=== PATIENT | female | born 1945 | race Caucasian/White ===

== ENCOUNTER → 2017-06-15 | Outpatient (CLI) | payer MEDICARE ==
[2016-08-21 11:52] VITALS: BP 200/92
[2017-06-15 11:08] LABS: eGFR (African) > 60; eGFR (Non-African) > 60
--- NOTE | 2017-06-15 13:22 | Diagnostic Imaging Report ---
JAKE LICEA [facility] [address] [facility] [address], [place]. [address] Report Submission Date: Jun 15, 2017 11:17:20 AM CDT Patient Study Name: TARI BECERRA Date: Jun 15, 2017 10:39:15 AM CDT Modality Type: CR Gender: F Description: CHEST : 47 Institution: [facility] Physician: JAKE LICEA Examination: PA and lateral chest. History: Evaluate lung rodriguez. Comparison exam: None available for direct review Findings: PA lateral chest demonstrates a prominent cardiac silhouette. Vascular calcifications involving the aortic arch. Diffuse hazy interstitial prominence. Fullness involving the right hilum. No blunting of the costophrenic margins. Osseous structures are appropriate for age. Impression: Diffuse bilateral parenchymal hazy infiltrates. More focal consolidation right hilum. No effusion. Electronically signed on Jun 15, 2017 11:17:20 AM CDT by: Lamont JOHNSON
== END ==
LOC: LAB 10:27
PROVIDERS: ATTEND Family Medicine
DX: J45.909 Unspecified asthma, uncomplicated (principal); R09.02 Hypoxemia
CPT/HCPCS: 36415; 71020; 80053

== ENCOUNTER 2017-09-26 14:09 | Outpatient (CLI) | payer MEDICARE ==
[2016-08-21 11:52] VITALS: BP 200/92
--- NOTE | 2017-09-26 14:39 | Diagnostic Imaging Report ---
HEIKE RENE [facility] [address] [facility] [address] [place] [address]. [id number] Report Submission Date: Sep 26, 2017 2:34:31 PM PR SPECIALIST Patient Study Name: TARI BECERRA Date: Sep 26, 2017 2:15:50 PM PR SPECIALIST Modality Type: CT\SR Gender: F Description: CT BRAIN W/O CONTRAST : 47 Institution: [facility] Physician: HEIKE RENE Examination: CT head without contrast History: Dizziness Comparison exam: None available Technique: Noncontrast head CT protocol. Findings: Ventricles and sulci are consistent for patient age. Cerebrocerebellar parenchyma demonstrates periventricular low attenuation consistent with small vessel disease. No evidence for parenchymal hemorrhage. No evidence for mass or mass effect. No midline shift. No extra axial fluid collections. Partial visualization of the paranasal sinuses, mastoid air cells, orbits, skull and scalp without gross irregularity. Streak artifact from dental hardware. Impression: Age related changes. No acute parenchymal process. No hemorrhage. Electronically signed on Sep 26, 2017 2:34:31 PM PR SPECIALIST by: Lamont JOHNSON
== END 2017-09-26 14:10 ==
LOC: RAD 14:09
PROVIDERS: ATTEND Family Medicine
DX: H91.90 Unspecified hearing loss, unspecified ear (principal)
CPT/HCPCS: 70450

== ENCOUNTER 2017-10-03 11:16 | Outpatient (CLI) | payer MEDICARE ==
[2016-08-21 11:52] VITALS: BP 200/92
--- NOTE | 2017-10-05 12:23 | OP Clinic Progress Note ---
REASON FOR VISIT: This pleasant 71-year-old lady is seen by herself in the clinic. She notes that exactly 1 month ago, on September 02, she woke up with bilateral sudden hearing loss. It felt like it was much more profound in the left ear. Progressively, the hearing in the right ear has gotten better, although it seems to wax and wane to some degree. She also noted marked imbalance. She also had some positional vertigo turning over in bed but that has changed significantly. Although the hearing loss has remained persistent and profound in the left ear, the balance issues have ameliorated only slightly. She does have a tendency to be significantly imbalanced and she does a lot of "furniture walking" or "wall walking." She tends to wobble and feel weaker more toward the right side. This should be noted as in contrast to the clinical sensorineural hearing loss that she has that would seem to be on the left side. Although there is a small amount of nonobstructive cerumen in both ear canals, the portion of the eardrums that I see do not have fluid in them. The tuning fork test would suggest a left-sided sensorineural hearing loss with a Gann referring to the right ear. When I do the Rinne test on the mastoid, the bone conducts and refers to the right ear in addition. The air conduction is greater than bone conduction on the right Rinne. There is no nystagmus. On observing the patient at the time of the clinic visit walking, she uses her right upper extremity to balance herself for the wall. Patient is a non-insulin dependent diabetic. She knows how to take her blood sugars but does not do that very frequently. She takes some oral hypoglycemics. I went over using diagrams and models. This clinically appears to be a sudden sensorineural hearing loss of the left side. She had a CT of the head without contrast. This is a normal exam. PLAN: I recommended taking steroids and she understands there is some risk with this. She has agreed that she will take some risk associated with her diabetes taking the steroids. She has also agreed to take her blood sugars at home 6 times a day at least here at the onset to be careful and watch herself. She knows not to allow the sugars to go too high. I started with 70 mg of prednisone a day tapering down 10 mg a day over a week. She has agreed to get her hearing checked in about 6 days. Also, get an MRI in the interim and arrangements will be made in that regard. cc: Dr. Curt JOHNSON
== END 2017-10-03 11:17 ==
LOC: ENT 11:16
PROVIDERS: ATTEND Otolaryngology
DX: H90.5 Unspecified sensorineural hearing loss (principal)
CPT/HCPCS: G0463

== ENCOUNTER 2018-02-23 13:44 | Emergency (ER) | payer MEDICARE ==
--- NOTE | 2018-02-23 14:54 | ED Physician Documentation ---
General Adult - HISTORIAN Historian: patient - HPI Stated Complaint: bloody stools Chief Complaint: General Adult Onset: days ago (1) Timing: still present Further Comments: yes (Pt is a 72 yo female who has had blood in her bowel movements since yesterday. Pt has had no abd pain, no rectal pain, no lightheadedness, no other sx except the finding of bloody stool. Pt has no family hx of GI dz. Pt takes Diclofenac 75 mg po bid, possibly for arthritis ( pt is not sure what it's for). Blood in BM is red, with some dark stool (but not black). Pt notes change in bowel habits in the past 6 months. Pt used to have 2 bm's/day and now has 3 bm's/day.) - ROS CONST: no problems EYES/ENT: none CVS/RESP: none GI/: other (blood in BM) MS/SKIN/LYMPH: none - PAST HX Past History: other (DM, COPD, B-12 def, HLD, HTN, GERD) Allergies/Adverse Reactions: Allergies Allergy/AdvReac Type Severity Reaction Status Date / Time No Known Allergies Allergy Verified 02/23/18 14:04 Home Medications: Ambulatory Orders Medication Instructions Recorded Mecobalamin [B-12] 1 tab PO DAILY 03/11/15 - SOCIAL HX Smoking History: cigarettes - FAMILY HX Family History: No - VITAL SIGNS Vital Signs: Vital Signs Temp Pulse Resp BP Pulse Ox 98.5 F 84 22 148/61 87 L 02/23/18 14:05 02/23/18 14:05 02/23/18 14:05 02/23/18 14:05 02/23/18 14:05 - REVIEWED ASSESSMENTS Nursing Assessment Reviewed: Yes Vitals Reviewed: Yes Progress - Progress Progress: Colonoscopy on Sunday02/25/18 at 11:30 am. (Dr. King). Follow instructions provided with bowel prep prescription. Return to ER if you have increased bleeding or any concerns. (Pt declined offer to try to arrange for colonoscopy in [place] today.) ED Results Lab/Radiology - Orders Orders: ED Orders Category Date Time Status CBC/PLATELET/DIFF Routine Lab 02/23/18 Received CMP Routine Lab 02/23/18 Received PT-INR Routine Lab 02/23/18 Received PTT Routine Lab 02/23/18 Received General Adult Physical Exam - PHYSICAL EXAM GENERAL APPEARANCE: no distress EENT: pharynx normal NECK: normal inspection, supple RESPIRATORY: no resp distress, chest non-tender, breath sounds normal CVS: reg rate & rhythm, heart sounds normal ABDOMEN: soft, no organomegaly, normal bowel sounds RECTAL: normal rectal tone, heme positive stool (ck blood) BACK: normal inspection, no CVA tenderness SKIN: warm/dry, normal color EXTREMITIES: non-tender, normal range of motion, no evidence of injury NEURO: oriented X3, motor nml, sensation nml Discharge Clincal Impression: Rectal bleeding Referrals: Curt Vidal MD [Primary Care Provider] - Condition: Stable Disposition: 01 HOME, SELF-CARE Decision to Admit: NO Decision Time: 15:54
[2018-02-23 14:55] LABS: BASOPHILS % 0.7 (0.0-1.5); EOSINOPHILS % 2.2 % (0.0-6.8); MEAN CORPUSCULAR HEMOGLOBIN 27.1 pg (28.0-34.0); MEAN CORPUSCULAR VOLUME 88.9 fl (80.0-100.0); MONOCYTES % 4.4 % (0.0-11.0); NEUTROPHILS # 7.8 # k/uL (1.4-7.7)
[2018-02-23 14:58] LABS: eGFR (African) > 60; eGFR (Non-African) > 60
[2018-02-23 15:58] VITALS: BP 137/67
== END 2018-02-23 15:54 | disposition home or self-care (01) ==
LOC: ED 13:44
DX: K62.5 Hemorrhage of anus and rectum (principal)
CPT/HCPCS: 80053; 85025; 85610; 85730; 99283

== ENCOUNTER 2018-02-25 10:48 | Day surgery (SDC) | payer MEDICARE ==
[2018-02-25] MEDS ORDERED: PROPOFOL 200 MG/20 ML VIAL IV ONE (10:49)
[2018-02-25] MEDS ORDERED: LACTATED RINGERS 1,000 ML IV.SOLN IV ONE (10:49)
[2018-02-25] MEDS ORDERED: SALINE FLUSH 10 ML DISP.SYRIN IVF ONE (10:49)
--- NOTE | 2018-02-28 12:10 | GI Report ---
BOILERMAKER MECHANIC: Chuckie King MD PROCEDURE MEDICATION: Propofol as per anesthesia. INDICATIONS: This 72-year-old woman was in the emergency room on February 23 with several days of blood with her stool and change in bowel habits. She has never had a colonoscopy. She has a lot of health issues. She has end-stage lung disease , COPD, and is already on oxygen at night time and still smokes a pack of cigarettes a day. She also is hyperlipidemic. She has metabolic syndrome. She is a diabetic. She is hypertensive with central obesity. She is 5 feet and weighs 89 kilograms and most of that is centrally. She said the bleeding then stopped and then with the prep, she had a little bleeding again. She is referred for a colonoscopy. Her oxygen saturation at rest was only 82% and that was before oxygen, so we discussed with her that she is really a high risk patient and that we would only be able to give her a light amount of sedation because of the severity of her lung disease and we could possibly get a diagnosis, possibly not. She is willing to try that because her lung disease is so severe. She is agreeable to that approach with light sedation. PROCEDURE PERFORMED: Incomplete colonoscopy. PROCEDURE: An Olympus video colonoscope was advanced to the rectum. In the sigmoid, she has severe diverticular disease. We got as far as about 45 to 50 cm and there was a lot of edema in the wall. I did not see specific pus. There was a little bit of a superficial ulceration, but with her lung disease so severe, we did not want to press and run the risk of a perforation, so we stopped at that point. FINDINGS: 1. Diverticular disease of the colon. 2. Diverticulitis. RECOMMENDATIONS: 1. We will treat her diverticulitis with Flagyl and Cipro if she is not allergic to it. 2. She needs to be on Benefiber, Metamucil, or Citrucel daily. 3. I encouraged her to get herself off of tobacco. 4. If things improve or resolve, then we might be able to attempt in a few months, once the diverticulitis has resolved, and hopefully, she will be able to get herself off tobacco, possibly later this year or in the fall, re-looking or trying to look at her whole colon when the inflammation is gone to make sure we are not missing some lesion above the severe diverticular disease. 5. A CAT scan of the abdomen and pelvis would be, if not done in the ER, another possible way to evaluate her colon. cc: Dr. Curt JOHNSON
== END 2018-02-25 10:50 ==
LOC: OPSURG 10:48
PROVIDERS: ATTEND Internal Medicine Gastroenterology
DX: K92.1 Melena (principal); K57.31 Diverticulosis of large intestine without perforation or abscess with bleeding; K57.21 Diverticulitis of large intestine with perforation and abscess with bleeding; J98.4 Other disorders of lung; J44.9 Chronic obstructive pulmonary disease, unspecified; F17.219 Nicotine dependence, cigarettes, with unspecified nicotine-induced disorders; Z99.81 Dependence on supplemental oxygen; E78.5 Hyperlipidemia, unspecified; E11.9 Type 2 diabetes mellitus without complications; E88.81 Metabolic syndrome and other insulin resistance; I10 Essential (primary) hypertension; E66.9 Obesity, unspecified; Z68.38 Body mass index [BMI] 38.0-38.9, adult
CPT/HCPCS: J2704; J7120; 45330; S1016

== ENCOUNTER 2018-06-04 08:53 | Outpatient (CLI) | payer MEDICARE ==
--- NOTE | 2018-06-04 17:58 | Diagnostic Imaging Report ---
HEIKE RENE [facility] [address] [facility].[address] [address] Report Submission Date: Jun 04, 2018 1:48:24 PM CDT Patient Study Name: TARI BECERRA Date: Jun 04, 2018 9:15:19 AM CDT Modality Type: US Gender: F Description: US CAROTID : 47 Institution: [facility] Physician: HEIKE RENE Examination: Carotid artery ultrasound History: Bruit heard hearing loss Comparison exams: None available Findings: Right carotid: Common carotid artery peak systolic velocity 73.3 cm/s; end diastolic velocity 13.9 cm/s. Internal carotid artery peak systolic velocity 145.9 cm/s; end diastolic velocity 38.2 cm/s. External carotid artery velocity to 67.4 cm/s. Vertebral artery velocity 24.2 cm/s Vertebral flow antegrade. Normal waveforms. Scattered plaquing. Left carotid: Common carotid artery peak systolic velocity 84.6 cm/s; end diastolic velocity 30.3 cm/s. Internal carotid artery peak systolic velocity 69.7 cm/s; end diastolic velocity 18.2 cm/s. External carotid artery velocity to 109.9 cm/s. Vertebral artery velocity 49.0 cm/s Vertebral flow antegrade. Normal waveforms. Scattered plaquing. Right ICA/CCA Ratio: 2.0; Left ICA/CCA Ratio 0.82 Impression: Elevated right carotid ratio suggesting severe stenosis (60-79%) Left carotids ratios not elevated. No restriction to hemodynamic flow. Consider obtaining MRA carotid arteries to better evaluate. Electronically signed on Jun 04, 2018 1:48:24 PM CDT by: Lamont JOHNSON
== END 2018-06-04 08:54 ==
LOC: RAD 08:53
PROVIDERS: ATTEND Family Medicine
DX: G45.9 Transient cerebral ischemic attack, unspecified (principal)
CPT/HCPCS: 93880

== ENCOUNTER 2018-09-29 16:16 | Emergency (ER) | payer MEDICARE ==
--- NOTE | 2018-09-29 21:39 | Diagnostic Imaging Report ---
MACKENZIE PRESLEY [facility] [address] [facility] [address] [place] [address]. [address] Report Submission Date: Sep 29, 2018 7:57:26 PM SOFT SUGAR CUTTER Patient Study Name: TARI BECERRA Date: Sep 29, 2018 7:05:24 PM SOFT SUGAR CUTTER Modality Type: CT\SR Gender: F Description: CT ABDOMEN/PELVIS W/ C : 47 Institution: [facility] Physician: MACKENZIE PRESLEY CT of the abdomen and pelvis with contrast Clinical history: Diffuse abdominal pain. Anorexia for 5 days. Weakness. Contrast administered: 95 mL of Omnipaque. Technique: CT of the abdomen and pelvis performed with intravenous infusion of contrast. Sagittal and coronal reconstructions were performed by the technologist. Findings: Visualized lung bases are clear. The liver and spleen demonstrate normal attenuation without focal defect. Small calcified gallstone is present in the gallbladder. There is no pancreatic abnormality. There is a left adrenal nodule measuring 1.5 cm in size. This is likely benign in the absence known underlying malignancy. Comparison with prior studies or follow-up CT scan in 1 year could be performed for confirmation. The kidneys demonstrate symmetric enhancement. There is no retroperitoneal mass or significant adenopathy. Vascular calcification is present in the abdominal aorta without evidence of aneurysm. There is no retroperitoneal mass or significant adenopathy. Bladder is unremarkable. There is sigmoid colonic wall thickening and edema with a giant diverticulum adjacent to the sigmoid and posterior to the uterus. This demonstrates an air-fluid level and small internal calcification. There is additional small fluid collection adjacent to the colon consistent with diverticular abscess. This fluid collection measures 2.7 by 1.8 by 2.9 cm in size. Gas and stool are present throughout the more proximal colon. The appendix is visualized and is within normal limits. Diffuse spondylitic changes are present throughout the thoracolumbar vertebrae Impression: 1. Giant diverticulum arising from the sigmoid colon with inflammatory changes in the sigmoid colon consistent with colitis or diverticulitis. 2. Diverticular abscess arising from the sigmoid colon. 3. Thoracolumbar spondylosis. 4. Negative appendix. Electronically signed on Sep 29, 2018 7:57:26 PM SOFT SUGAR CUTTER by: Nabeel JOHNSON
[2018-09-30 08:04] LABS: eGFR (Non-African) > 60
[2018-09-30 08:05] LABS: MEAN CORPUSCULAR HEMOGLOBIN 26.5 pg (28.0-34.0)
[2018-09-30 08:06] LABS: BASOPHILS % 0.7 (0.0-1.5); EOSINOPHILS % 1.6 % (0.0-6.8); MONOCYTES % 11.4 % (0.0-11.0); NEUTROPHILS # 10.2 # k/uL (1.4-7.7)
[2018-10-01 07:19] LABS: APPEARANCE,URINE CLEAR (CLEAR); COLOR,URINE YELLOW (YELLOW); OCCULT BLOOD,URINE NEGATIVE (NEGATIVE)
== END 2018-09-29 20:45 | disposition home or self-care (01) ==
LOC: ED 16:16
DX: K57.20 Diverticulitis of large intestine with perforation and abscess without bleeding (principal)
CPT/HCPCS: 36415; 74177; 80053; 81002; 85025; 99283; 99284; J7030; Q9967; S1016

== ENCOUNTER 2018-10-07 13:40 | Emergency (ER) | payer MEDICARE ==
[2018-10-07] MEDS ORDERED: 0.9 % SODIUM CHLORIDE 1,000 ML IV ONE (13:58)
[2018-10-07 14:23] LABS: MEAN CORPUSCULAR HEMOGLOBIN 27.2 pg (28.0-34.0)
[2018-10-07 14:30] LABS: BASOPHILS % 1 % (0-2); EOSINOPHILS % 0 % (0-7); MONOCYTES % 3 % (0-11); SEGMENTED NEUTROPHILS % 76 % (39-79); TOXIC GRANULATION PRESENT; TOXIC VACUOLATION PRESENT
[2018-10-07 14:31] LABS: ANISOCYTOSIS 1+ (NEGATIVE); TEAR DROP CELLS 1+ (NEGATIVE); eGFR (Non-African) > 60
--- NOTE | 2018-10-07 14:37 | ED Physician Documentation ---
Abdominal Pain - HISTORIAN Historian: patient, other (Dr Vázquez) - HPI Stated Complaint: Abd pain, blood in stool Chief Complaint: General Adult Onset: days ago Timing: worse Context: denies: out of country travel, bad food, recent trauma Severity: severe Quality: pain Associated Symptoms: fever, chills, bloody stools, grossly bloody stools Exacerbated by: nothing Relieved by: nothing Further Comments: yes (72 year old female patient sent over from [facility] with worsening abdominal pain and bloody stools. Patient was seen in the ER on 09/29/2017 - discharged home with cipro and flagyl. She presented to her PCP with increased abdominal pain and bloody stools. Old records reviewed) - ROS CONST: recent illness GI/: bloody urine CVS/RESP: none EYES/ENT: none MS/SKIN/LYMPH: none NEURO/PSYCH: none - SOCIAL HX Smoking History: non-smoker - FAMILY HX Family History: denies: none - PAST HX Past History: diverticulitis Other History: diabetes Type 2, hyperlipidemia, hypertension, other (depression) Home Medications: Ambulatory Orders Medication Instructions Recorded Mecobalamin [B-12] 1 tab PO DAILY 03/11/15 Allergies/Adverse Reactions: Allergies Allergy/AdvReac Type Severity Reaction Status Date / Time tolterodine tartrate Allergy Intermediate Generalized Verified 10/07/18 14:09 Swelling metformin HCl Allergy Unknown Verified 10/07/18 14:09 - VITAL SIGNS Vital Signs: Vital Signs Temp Pulse Resp BP Pulse Ox 100.0 F H 104 H 28 H 143/59 83 L 10/07/18 13:41 10/07/18 13:41 10/07/18 13:41 10/07/18 13:41 10/07/18 13:41 - REVIEWED ASSESSMENTS Nursing Assessment Reviewed: Yes Vitals Reviewed: Yes Progress - Progress Progress: Call from Dr Tinajero - CT results discussed. Reviewed results with patient; explained she needed immediate surgical evaluation. Patient would like to be transferred to [place]. 1610 Call to [place], case discussed with Tariq [address] Ortiz. Medicated for pain with Fentanyl IV. 1625 Family at bedside - updated on CT results and plan of care. ED Results Lab/Radiology - Lab Results Lab Results: Lab Results 10/07/18 10/07/18 10/07/18 16:04 14:04 14:04 WBC 18.60 K/ul H K/ul (4.00-12.00) RBC 4.20 M/ul M/ul (3.90-5.20) Hgb 11.4 g/dL L g/dL (12.0-16.0) Hct 34.7 % % (34.5-46.5) MCV 83.0 fl fl (80.0-100.0) MCH 27.2 pg L pg (28.0-34.0) MCHC 32.9 g/dL g/dL (30.0-36.0) RDW 14.6 % H % (11.3-14.3) Plt Count 308 K/mm3 K/mm3 (130-400) Seg Neutrophils % 76 % % (39-79) Band Neutrophils % 15 % H % (0-12) Lymphocytes % 2 % L % (16-50) Monocytes % 3 % % (0-11) Eosinophils % 0 % % (0-7) Basophils % 1 % % (0-2) Metamyelocytes % 3 % H % (0-0) Myelocytes % 0 % % (0-0) Reactive Lymphocytes 0 % % (0-5) Toxic Granulation Present Toxic Vacuolation Present Platelet Estimate Plt Morphology Comment Normal (NORMAL) Polychromasia 1+ H (NEGATIVE) Poikilocytosis 3+ H (NEGATIVE) Anisocytosis 1+ H (NEGATIVE) Microcytosis 1+ H (NEGATIVE) Tear Drop Cells 1+ H (NEGATIVE) Acanthocytes (Spur) 1+ H (NEGATIVE) RBC Morph Comment Abnormal H (NORMAL) Sodium 130 mmol/L L mmol/L (136-145) Potassium 3.6 mmol/L mmol/L (3.5-5.1) Chloride 90 mmol/L L mmol/L (98-107) Carbon Dioxide 31 mmol/L H mmol/L (22-30) BUN 17 mg/dL mg/dL (7-17) Creatinine 0.68 mg/dL mg/dL (0.52-1.04) Estimated Creat Clear 127 Est GFR ( Amer) > 60 (60 - ) Est GFR (Non-Af Amer) > 60 (60 - ) Glucose 219 mg/dL H mg/dL (74-106) Lactate 2.1 U/L U/L (0.7-2.1) Calcium 9.6 mg/dL mg/dL (8.4-10.2) Total Bilirubin 0.6 mg/dL mg/dL (0.2-1.3) AST 12 U/L L U/L (15-46) ALT 18 U/L U/L (13-69) Alkaline Phosphatase 88 U/L U/L (38-126) Total Protein 6.2 g/dL L g/dL (6.3-8.2) Albumin 3.3 g/dL L g/dL (3.5-5.0) Urine Color Unk (YELLOW) Urine Appearance Cloudy H (CLEAR) Urine pH 6.0 (5.0 - 8.0) Ur Specific [place] 1.020 (1.010-1.030) Urine Protein 1+ mg/dL H mg/dL (NEGATIVE) Urine Ketones 1+ mg/dL H mg/dL (NEGATIVE) Urine Occult Blood Trace-lysed H (NEGATIVE) Urine Nitrite Positive H (NEGATIVE) Urine Bilirubin 2+ H (NEGATIVE) Urine Urobilinogen 1.0 Eu Eu (0.2-1.0) Ur Leukocyte Esterase Trace H (NEGATIVE) Urine Glucose Negative mg/dL mg/dL (NEGATIVE) - Radiology Radiology Impressions: CT abdomen and pelvis with contrast History: Worsening abdominal pain Technique: Helically acquired images were obtained from the hemidiaphragms to the pelvic floor following IV contrast. Findings: There is free air scattered within the abdomen and pelvis. There is at least 1 tiny gallstone. Otherwise, the gallbladder is unremarkable. The liver, spleen, pancreas, adrenal glands and kidneys are unremarkable. There is a large amount of stool throughout the right colon. The appendix is visualized and is within normal limits. Directly adjacent to a distal descending diverticulum, there is a tract of free air (see image [id number]). Therefore, a perforated diverticulum potentially may be the source of the free air. There are small loculated and somewhat complex fluid collections within the left pelvis (see image 61 of 88) measuring 3.2 x 1.8 cm and image 68 of 88 measuring 3.8 x 2.3 cm. These complex loculated fluid collections have not yet developed into mature abscesses. There is heavy aortoiliac atherosclerosis without aneurysm. Stool is present within the sigmoid colon. No bladder abnormalities are noted. Lung bases are clear. There is vacuum disc phenomenon at L2/3, L3/4 and T10/11. Impression: A moderate amount of free air is scattered throughout the abdomen and pelvis consistent with bowel perforation. The site of perforation probably involves the sigmoid colon where there is a tract of air extending from at least 1 diverticulum. Emergent surgical consultation would be indicated. There is mild hazy induration at the root of the mesentery. There are 2 localized complex fluid collections within the left pelvis as detailed in the body of report concerning for developing but not yet mature abscesses. Increased stool within the right colon. There is some stool through the sigmoid colon. Heavy aortoiliac atherosclerosis. These findings were discussed with Dr. Cocharn on October 07, 2018 at 1555 central standard time. Electronically signed on Oct 07, 2018 4:07:02 PM ELECTRICAL LABORATORY TECHNICIAN by:Morenita Tinajero - Orders Orders: ED Orders Category Date Time Status Place IV Lock 1T Care 10/07/18 13:[address] ABD & PELVIS W/ CON Stat Exams 10/07/18 Completed BLOOD CULTURE Stat Lab 10/07/18 14:47 Received CBC/PLATELET/DIFF Stat Lab 10/07/18 14:04 Completed CMP Stat Lab 10/07/18 14:04 Completed LACTATE Stat Lab 10/07/18 14:04 Completed RBC/PLATELET MORPHOLOGY Stat Lab 10/07/18 14:04 Completed UA MACRO DIP ONLY Stat Lab 10/07/18 16:04 Received URINE CULTURE Stat Lab 10/07/18 16:04 Received 0.9 % Sodium Chloride [Normal Saline] 1,000 ml Med 10/07/18 13:58 Discontinued IV NOW LACTATED RINGERS @ 1,000 MLS/HR(1,000ml)(BOLUS) Med 10/07/18 16:18 Ordered Lactated Ringers [Ringers, Lactated] 1,000 ml IV Q1H Lactated Ringers [Ringers, Lactated] 1,000 ml Med 10/07/18 16:18 Discontinued IV .STK-MED Piperacillin Sodium/Tazobactam [Zosyn] 3.375 gm Med 10/07/18 14:38 Discontinued 0.9 % Sodium Chloride [Sodium Chloride] 100 ml IV NOW fentaNYL CITRATE/PF Med 10/07/18 16:18 Once 50 mcg IVP NOW ONE Abdominal Pain Physical Exam - Physical Exam General Appearance: moderate distress EENT: eye inspection normal, ENT inspection normal, pharynx normal, no signs of dehydration, SERAFIN, no nystagmus, TM's nml RESPIRATORY: chest non-tender, breath sounds normal, other (RA Sat 83% on a rrival) CVS: heart sounds normal, equal pulses, no murmur, no gallop, PMI nml, no JVD, no friction rub, tachycardia ABDOMEN: soft, no organomegaly, no abdominal bruit, tenderness (epigastric, LUQ and LLQ), decreased BS, other (distended; tender to mild palpation) SKIN: warm/dry, pallor EXTREMITIES: non-tender, normal range of motion, no evidence of injury, no edema, J, 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
[2018-10-07] MEDS ORDERED: PIPERACILLIN SODIUM/TAZOBACTAM 3.375 GM in 0.9 % SODIUM CHLORIDE(MINIBAG+ 100 ML IV ONE (14:38)
--- NOTE | 2018-10-07 16:09 | Diagnostic Imaging Report ---
ORLANOD HILLS (BACK TENDER PULP DRIER) - ER [facility] [place] [facility] [address] [facility] [address] [place], [place]. [address] Report Submission Date: Oct 07, 2018 4:07:02 PM NURSING CARE PARTNER Patient Study Name: TARI BECERRA Date: Oct 07, 2018 2:54:07 PM NURSING CARE PARTNER Modality Type: CT Gender: F Description: CT ABD PELVIS W/ CON : 47 Institution: [facility] Physician: ORLANDO HILLS (BACK TENDER PULP DRIER) - ER CT abdomen and pelvis with contrast History: Worsening abdominal pain Technique: Helically acquired images were obtained from the hemidiaphragms to the pelvic floor following IV contrast. Findings: There is free air scattered within the abdomen and pelvis. There is at least 1 tiny gallstone. Otherwise, the gallbladder is unremarkable. The liver, spleen, pancreas, adrenal glands and kidneys are unremarkable. There is a large amount of stool throughout the right colon. The appendix is visualized and is within normal limits. Directly adjacent to a distal descending diverticulum, there is a tract of free air (see image [id number]). Therefore, a perforated diverticulum potentially may be the source of the free air. There are small loculated and somewhat complex fluid collections within the left pelvis (see image 61 of 88) measuring 3.2 x 1.8 cm and image 68 of 88 measuring 3.8 x 2.3 cm. These complex loculated fluid collections have not yet developed into mature abscesses. There is heavy aortoiliac atherosclerosis without aneurysm. Stool is present within the sigmoid colon. No bladder abnormalities are noted. Lung bases are clear. There is vacuum disc phenomenon at L2/3, L3/4 and T10/11. Impression: A moderate amount of free air is scattered throughout the abdomen and pelvis consistent with bowel perforation. The site of perforation probably involves the sigmoid colon where there is a tract of air extending from at least 1 diverticulum. Emergent surgical consultation would be indicated. There is mild hazy induration at the root of the mesentery. There are 2 localized complex fluid collections within the left pelvis as detailed in the body of report concerning for developing but not yet mature abscesses. Increased stool within the right colon. There is some stool through the sigmoid colon. Heavy aortoiliac atherosclerosis. These findings were discussed with Dr. Hills on October 07, 2018 at 1555 central standard time. Electronically signed on Oct 07, 2018 4:07:02 PM NURSING CARE PARTNER by: Morenita JOHNSON
[2018-10-07 16:17] LABS: APPEARANCE,URINE CLOUDY (CLEAR)
[2018-10-07 16:18] LABS: OCCULT BLOOD,URINE TRACE-LYSED (NEGATIVE)
[2018-10-07] MEDS ORDERED: fentaNYL CITRATE/PF 100 MCG/2 ML INJ. IVP ONE ×2 (16:18→16:34)
[2018-10-07] MEDS ORDERED: LACTATED RINGERS 1,000 ML IV ONE ×2 (16:18)
[2018-10-07 16:38] VITALS: BP 121/48
== END 2018-10-07 16:26 | disposition short-term general hospital (02) ==
LOC: ED 13:40
DX: K63.1 Perforation of intestine (nontraumatic) (principal); K66.8 Other specified disorders of peritoneum; R18.8 Other ascites
CPT/HCPCS: 36415; 74177; 80053; 81002; 83605; 85025; 87040; 87086; 96365; 96375; 99285; J2543; J3010; J7030; J7120; Q9967; S1016

== ENCOUNTER 2018-10-22 14:06 | Inpatient (IN) | payer MEDICARE ==
[2018-10-22 14:33] VITALS: BMI 38.5
[2018-10-22] MEDS ORDERED: IPRATROPIUM/ALBUTEROL SULFATE 3 ML AMPUL.NEB NEB PRN (14:41)
--- NOTE | 2018-10-22 15:30 | History and Physical Report ---
History of Present Illnes - History of Present Illness Reason for Visit: Perforated sigmoid diverticulum History of Present Illness: This is a 72 year old female well known to myself who was admitted to [facility] (after initially presenting to [facility]) where CT showed her to have a perforated sigmoid diverticulum. She was transferred to [place], and on the evening of admission, she had a exploratory laparotomy with sigmoid colectomy with end descending colostomy and drainage of intrabdominal abcesses. A Justin pouch was developed at the time of surgery with plans for reanastamosis in 4-6 weeks. She initially went home, however she remained very weak, and was eating very little. She had some bouts of hypoglycemia, and her amaryl and Actos were held due to this. Due to her continued weakness, she and her decided that she would benefit from a skilled stay at [facility] and she is admitted for PT/OT with plans to return home after discharge. - Past Medical History Cardiac: HTN, Hyperlipidemia Pulmonary: Asthma, COPD Gastrointestinal: Peptic ulcer disease Psych: Depression Renal/: Other (kidney stones) Endocrine: Diabetes, obesity - Past Surgical History Past Surgical History: Tubal Ligation, Other (Sigmoid colectomy/Justin pouch formation October 07, 2018) - Past Social History Smoke: Quit Alcohol: Rare Drugs: None Lives: With Family ( Kwasi) - Health Maintenance Health Maintenance: Cholesterol Influenza Vaccine: Current for this Influenza Season Pneumonia Vaccine: Yes Resuscitation Status: Resusciation Status Resuscitation Status Full Code - Unable to Obtain History Unable to Obtain: No Review of Systems - Review of Systems Constitutional: Weakness. negative: Fever, Chills Eyes: negative: pain, vision change ENT: negative: Ear Pain, Ear Discharge Respiratory: Shortness of Breath (Chronic). negative: Cough Cardiovascular: negative: Chest Pain, Palpitations Gastrointestinal: Abdominal Pain (at site of incision (much improved)), Other (Early satiety). negative: Nausea, Vomiting Genitourinary: negative: Dysuria, Frequency Musculoskeletal: negative: Neck Pain, Shoulder Pain Skin: negative: Rash, Lesions Neurological: Weakness. negative: Change in Speech, Confusion - Medications/Allergies Allergies/Adverse Reactions: Allergies Allergy/AdvReac Type Severity Reaction Status Date / Time tolterodine tartrate Allergy Intermediate Generalized Verified 10/07/18 14:09 Swelling metformin HCl Allergy Unknown Verified 10/07/18 14:09 Home Medications: Home Medications Diclofenac Sodium 75 mg PO D 10/22/18 HYDROcodone /APAP 5/325 [[place] 5/325] 1 each PO Q4 10/22/18 Levofloxacin [Levaquin] 750 mg PO D 10/22/18 Magnesium Hydroxide [Milk of Magnesia] 0.5 mg PO D 10/22/18 Pioglitazone HCl [Actos] 45 mg PO D 10/22/18 Simvastatin 20 mg PO HS 10/22/18 Sitagliptin Phosphate [Januvia] 100 mg PO D 10/22/18 l Acidophil/B Lactis/B Longum [Florajen3 Capsule] 460 mg PO HS 10/22/18 metroNIDAZOLE [Flagyl] 500 mg PO TID 10/22/18 Current Inpatient Medications: Current Inpatient Medications Al Hydroxide/Mg Hydroxide (Milk Of Magnesia) 2,400 mg PO DAILY [facility] Albuterol/Ipratropium (Duoneb) 3 ml NEB Q4 PRN PRN Reason: Wheezing Amlodipine Besylate (Norvasc) 10 mg PO DAILY [facility] Enoxaparin Sodium (Lovenox) 30 mg SQ DAILY [facility] Stop: 11/06/18 08:59 Levofloxacin (Levaquin) 750 mg PO DAILY [facility] Losartan Potassium (Cozaar) 100 mg PO DAILY [facility] Metronidazole (Flagyl) 500 mg PO TID [facility] Miscellaneous (Non Form) 1 each PO DAILY [facility] Miscellaneous (Patient Own Med) 2 each PO HS [facility] Pantoprazole Sodium (Protonix) 40 mg PO 0700 [facility] Paroxetine HCl (Paxil) 20 mg PO DAILY [facility] Simvastatin (Zocor) 20 mg PO HS [facility] Sitagliptin Phosphate (Januvia) 100 mg PO DAILY [facility] Exam - Exam Vital Signs: Vital Signs (72 hours) 10/22/18 10/22/18 14:09 14:27 Temperature 97.9 F 97.9 F Pulse Rate [ 95 H 95 H Right] Respiratory 20 20 Rate Blood Pressure 128/55 128/55 [Right Arm] O2 Sat by Pulse 91 L 91 L Oximetry General: Alert, Oriented to Person, Oriented to Place, Oriented to Time, Mild distress HEENT: Atraumatic, PERRLA, EOMI, Mouth Mucous membr. moist/[place] Neck: No: Stridor, Rigidity Lungs: Clear to auscultation, Decreased Air Movement Cardiovascular: Regular rate, Normal S1, Normal S2 Murmur: No: Systolic Murmur Murmur Location: No: Other Abdomen: Normal bowel sounds, Soft, Other (Colostomy is in place in left mid abdomen. Midline wound is reapproximated with ananya.) Genitourinary: No: Other Male Genitourinary: No: Other Female Genitourinary: Other Integumentary: Normal, [place], Warm, Dry Extremities: Other (3+ edema bilaterally). No: No clubbing Neurological: Normal speech, Strength Equal Bilat Psych/Mental Status: Mental status NL Assessment/Plan - Assessment/Plan (1) S/P colostomy Status: Acute Current Visit: Yes Assessment: Nursing to assist with colostomy care (2) Perforated bowel Status: Acute Current Visit: No Assessment: S/P left sigmoid colectomy/Justin pouch developement, drainage of intra abdominal abcesses (3) Chronic obstructive pulmonary disease Status: Acute Current Visit: Yes Assessment: Continue nebulizer treatments Encouraged her to remain smoke free Supplemental oxygen at 2LNC is ordered (4) Diabetes mellitus Status: Chronic Current Visit: No Qualifiers: Diabetes mellitus type: type 2 Diabetes mellitus production bow maker insulin use: without production bow maker use Diabetes mellitus complication status: without complication Qualified Code(s): E11.9 - Type 2 diabetes mellitus without complications Assessment: Currently holding Actos and Amaryl due to hypoglycemia Will order SSI and Chem sticks (5) Hypertension Status: Chronic Current Visit: No Qualifiers: Hypertension type: essential hypertension Qualified Code(s): I10 - Essential (primary) hypertension Assessment: Continue Amlodipine and Losartan BP is currently well controlled. VTE Assessment - RISK FACTOR SCORE VTE RISK FACTOR SCORES: AGE OVER 60 YEARS, OBESITY, MAJOR SURGERY/ANESTHESIA TIME > 1 HOUR (On Lovenox)
[2018-10-22] MEDS: INSULIN LISPRO 100 UNIT/ML 3ML VIAL SQ SCH ×2 (16:40→20:18)
[2018-10-22] MEDS: metroNIDAZOLE 500 MG TABLET PO SCH (18:05)
[2018-10-22] MEDS ORDERED: L. ACIDOPHILUS/LACTOBAC SPOR 1 EACH CAP ONE (19:18)
[2018-10-22] MEDS ORDERED: PANTOPRAZOLE SODIUM 40 MG TABLET.DR ONE (19:18)
[2018-10-22] MEDS: L. ACIDOPHILUS/LACTOBAC SPOR 1 EACH CAP PO SCH (19:55)
[2018-10-22] MEDS: SIMVASTATIN 20 MG TABLET PO SCH (19:56)
[2018-10-22] MEDS ORDERED: ACETAMINOPHEN 325 MG TABLET ONE (19:59)
[2018-10-22] MEDS ORDERED: diphenhydrAMINE HCL 25 MG TABLET PO ONE (19:59)
[2018-10-22] MEDS ORDERED: MAGNESIUM HYDROXIDE 2,400 MG/30 ML UDC PO ONE (20:00)
[2018-10-22] MEDS: MAGNESIUM HYDROXIDE 2,400 MG/30 ML UDC PO SCH (20:13)
[2018-10-22] MEDS: diphenhydrAMINE HCL 25 MG TABLET PO SCH (20:14)
[2018-10-22] MEDS: ACETAMINOPHEN 325 MG TABLET PO SCH (20:18)
[2018-10-22] MEDS ORDERED: PATIENT OWN MED 1 EACH EACH PO SCH (21:00)
[2018-10-22] MEDS ORDERED: ACETAMINOPHEN 325 MG TABLET PO SCH ×2 (21:00)
[2018-10-23] MEDS: PANTOPRAZOLE SODIUM 40 MG TABLET.DR PO SCH (06:21)
[2018-10-23 07:45] LABS: BASOPHILS % 0.4 (0.0-1.5); EOSINOPHILS % 3.3 % (0.0-6.8); MEAN CORPUSCULAR HEMOGLOBIN 27.3 pg (28.0-34.0); MONOCYTES % 5.7 % (0.0-11.0); NEUTROPHILS # 6.5 # k/uL (1.4-7.7)
[2018-10-23] MEDS: INSULIN LISPRO 100 UNIT/ML 3ML VIAL SQ SCH ×5 (07:46→21:21)
[2018-10-23 08:15] LABS: eGFR (Non-African) > 60
--- NOTE | 2018-10-23 08:27 | Inpatient Progress Note ---
Subjective - Required Recertification Statement I anticipate X number of days because-include discharge plan: 7 - Review of Systems Events since last encounter: Alisha is feeling better today. She denies any pain. We are still working on getting her a new appliance and the rest of the supplies that we need to get her everything she needs for ostomy care. Her hemoglobin is 8.7 today (up from 7.9 at [facility]) General: Denies: Chills HEENT: Denies: Head Aches Pulmonary: Dyspnea (Chronic) Cardiovascular: Denies: Chest Pain, Palpitations Gastrointestinal: Abdominal Pain (improved). Denies: Nausea, Vomiting Genitourinary: Denies: Dysuria Musculoskeletal: Denies: Neck Pain Neurological: Denies: Weakness, Change in Speech Objective - Exam Vitals and I&O: Vital Signs Temp 97.8 F 10/22/18 21:00 Pulse 84 10/22/18 21:00 Resp 20 10/22/18 21:00 BP 137/86 10/22/18 21:00 Pulse Ox 98 10/22/18 21:00 Intake & Output 10/22/18 10/22/18 10/23/18 11:59 23:59 11:59 Weight 89.358 kg Other: Voiding Method Toilet # Voids 1 # Bowel Movements 0 General: Alert, Oriented to Person, Oriented to Place, Oriented to Time, Obese HEENT: Atraumatic, PERRLA, EOMI Neck: Supple, No JVD, No thyromegaly Lungs: Clear to auscultation, Decreased Air Movement Cardiovascular: Regular rate Abdomen: Normal bowel sounds, Soft Extremities: No clubbing, Other (Edema is still present (placing TANMAY hose)) Skin: Normal, [place], Warm Neurological: Normal speech, Generalized Weakness Psych/Mental Status: Mental status NL - Results Results: Laboratory Results WBC 8.60 K/ul (4.00-12.00) 10/23/18 07:30 RBC 3.14 M/ul (3.90-5.20) L 10/23/18 07:30 Hgb 8.6 g/dL (12.0-16.0) L 10/23/18 07:30 Hct 26.4 % (34.5-46.5) L 10/23/18 07:30 MCV 84.0 fl (80.0-100.0) 10/23/18 07:30 MCH 27.3 pg (28.0-34.0) L 10/23/18 07:30 MCHC 32.4 g/dL (30.0-36.0) 10/23/18 07:30 RDW 16.2 % (11.3-14.3) H 10/23/18 07:30 Plt Count 263 K/mm3 (130-400) 10/23/18 07:30 Neut % (Auto) 75.7 % (39.0-79.0) 10/23/18 07:30 Lymph % (Auto) 14.9 % (16.0-50.0) L 10/23/18 07:30 [place] % (Auto) 5.7 % (0.0-11.0) 10/23/18 07:30 Eos % (Auto) 3.3 % (0.0-6.8) 10/23/18 07:30 Baso % (Auto) 0.4 (0.0-1.5) 10/23/18 07:30 Neut # (Auto) 6.5 # k/uL (1.4-7.7) 10/23/18 07:30 Lymph # (Auto) 1.3 # k/uL (0.6-4.0) 10/23/18 07:30 [place] # (Auto) 0.5 # k/uL (0.0-0.9) 10/23/18 07:30 Eos # (Auto) 0.3 # k/uL (0.0-0.6) 10/23/18 07:30 Baso # (Auto) 0.0 # k/uL (0.0-0.5) 10/23/18 07:30 Sodium 140 mmol/L (136-145) 10/23/18 07:30 Potassium 4.3 mmol/L (3.5-5.1) 10/23/18 07:30 Chloride 101 mmol/L (98-107) 10/23/18 07:30 Carbon Dioxide 31 mmol/L (22-30) H 10/23/18 07:30 BUN 10 mg/dL (7-17) 10/23/18 07:30 Creatinine 0.49 mg/dL (0.52-1.04) L 10/23/18 07:30 Estimated Creat Clear 174 10/23/18 07:30 Est GFR ( Amer) > 60 (60-) 10/23/18 07:30 Est GFR (Non-Af Amer) > 60 (60-) 10/23/18 07:30 Glucose 80 mg/dL (74-106) 10/23/18 07:30 Calcium 9.1 mg/dL (8.4-10.2) 10/23/18 07:30 Total Bilirubin 0.5 mg/dL (0.2-1.3) 10/23/18 07:30 AST 20 U/L (15-46) 10/23/18 07:30 ALT 11 U/L (13-69) L 10/23/18 07:30 Alkaline Phosphatase 52 U/L (38-126) 10/23/18 07:30 Total Protein 5.2 g/dL (6.3-8.2) L 10/23/18 07:30 Albumin 2.7 g/dL (3.5-5.0) L 10/23/18 07:30 Assessment/Plan - Assessment/Plan (1) S/P colostomy Status: Resolved Current Visit: Yes Assessment: Continue teaching for ostomy care, will obtain supplies today. (2) Perforated bowel Status: Acute Current Visit: No Assessment: S/P ostomy placement (3) Chronic obstructive pulmonary disease Status: Acute Current Visit: Yes Qualifiers: COPD type: emphysema Emphysema type: panlobular Qualified Code(s): J43.1 - Panlobular emphysema Assessment: Continue supplemental oxygen, continue HFN (4) Diabetes mellitus Status: Chronic Current Visit: No Qualifiers: Diabetes mellitus type: type 2 Diabetes mellitus intermediate manager insulin use: without longterm use Diabetes mellitus complication status: without complication Qualified Code(s): E11.9 - Type 2 diabetes mellitus without complications Assessment: BS was 216 last evening, but back to 86 this morning Plan: Will hold Amaryl and Actos (5) Hypertension Status: Chronic Current Visit: No Qualifiers: Hypertension type: essential hypertension Qualified Code(s): I10 - Essential (primary) hypertension Assessment: Well controlled (6) Postoperative anemia Status: Acute Current Visit: Yes Assessment: Hgb is 8.6 this morning (will follow, this is improved from last check at [facility])
[2018-10-23] MEDS ORDERED: Non-Formulary 1 EACH PO SCH (09:00)
[2018-10-23] MEDS ORDERED: MAGNESIUM HYDROXIDE 2,400 MG/30 ML UDC PO SCH (09:00)
[2018-10-23] MEDS: metroNIDAZOLE 500 MG TABLET PO SCH ×3 (09:03→17:44)
[2018-10-23] MEDS: LEVOFLOXACIN 250 MG TABLET PO SCH (09:03)
[2018-10-23] MEDS: SITAGLIPTIN PHOSPHATE 50 MG TABLET PO SCH (09:03)
[2018-10-23] MEDS: LOSARTAN POTASSIUM 50 MG TABLET PO SCH (09:03)
[2018-10-23] MEDS: PARoxetine HCL 10 MG TABLET PO SCH (09:04)
[2018-10-23] MEDS: amLODIPine BESYLATE 5 MG TABLET PO SCH (09:04)
[2018-10-23] MEDS: ENOXAPARIN SODIUM 30 MG/0.3 ML DISP.SYRIN SQ SCH (09:06)
[2018-10-23] MEDS: MAGNESIUM HYDROXIDE 2,400 MG/30 ML UDC PO SCH (21:08)
[2018-10-23] MEDS: diphenhydrAMINE HCL 25 MG TABLET PO SCH (21:08)
[2018-10-23] MEDS: ACETAMINOPHEN 325 MG TABLET PO SCH (21:09)
[2018-10-23] MEDS: SIMVASTATIN 20 MG TABLET PO SCH (21:09)
[2018-10-23] MEDS: L. ACIDOPHILUS/LACTOBAC SPOR 1 EACH CAP PO SCH (21:09)
[2018-10-24] MEDS: PANTOPRAZOLE SODIUM 40 MG TABLET.DR PO SCH (06:16)
[2018-10-24] MEDS: INSULIN LISPRO 100 UNIT/ML 3ML VIAL SQ SCH ×4 (07:08→20:55)
[2018-10-24] MEDS: PARoxetine HCL 10 MG TABLET PO SCH (08:48)
[2018-10-24] MEDS: ENOXAPARIN SODIUM 30 MG/0.3 ML DISP.SYRIN SQ SCH (08:48)
[2018-10-24] MEDS: SITAGLIPTIN PHOSPHATE 50 MG TABLET PO SCH (08:49)
[2018-10-24] MEDS: LEVOFLOXACIN 250 MG TABLET PO SCH (08:49)
[2018-10-24] MEDS: metroNIDAZOLE 500 MG TABLET PO SCH ×3 (08:49→17:13)
[2018-10-24] MEDS: LOSARTAN POTASSIUM 50 MG TABLET PO SCH (08:50)
[2018-10-24] MEDS: amLODIPine BESYLATE 5 MG TABLET PO SCH (08:51)
[2018-10-24] MEDS ORDERED: 0.9 % SODIUM CHLORIDE 50 ML IV ONE (19:57)
[2018-10-24] MEDS: diphenhydrAMINE HCL 25 MG TABLET PO SCH (20:51)
[2018-10-24] MEDS: L. ACIDOPHILUS/LACTOBAC SPOR 1 EACH CAP PO SCH (20:51)
[2018-10-24] MEDS: ACETAMINOPHEN 325 MG TABLET PO SCH (20:51)
[2018-10-24] MEDS: SIMVASTATIN 20 MG TABLET PO SCH (20:51)
[2018-10-24] MEDS: MAGNESIUM HYDROXIDE 2,400 MG/30 ML UDC PO SCH (20:53)
[2018-10-25] MEDS: PANTOPRAZOLE SODIUM 40 MG TABLET.DR PO SCH (06:12)
[2018-10-25] MEDS: INSULIN LISPRO 100 UNIT/ML 3ML VIAL SQ SCH ×4 (07:18→19:36)
[2018-10-25] MEDS: amLODIPine BESYLATE 5 MG TABLET PO SCH (09:38)
[2018-10-25] MEDS: SITAGLIPTIN PHOSPHATE 50 MG TABLET PO SCH (09:38)
[2018-10-25] MEDS: LEVOFLOXACIN 250 MG TABLET PO SCH (09:38)
[2018-10-25] MEDS: metroNIDAZOLE 500 MG TABLET PO SCH ×3 (09:39→17:20)
[2018-10-25] MEDS: PARoxetine HCL 10 MG TABLET PO SCH (09:39)
[2018-10-25] MEDS: LOSARTAN POTASSIUM 50 MG TABLET PO SCH (09:39)
[2018-10-25] MEDS: ENOXAPARIN SODIUM 30 MG/0.3 ML DISP.SYRIN SQ SCH (09:39)
[2018-10-25] MEDS: ACETAMINOPHEN 325 MG TABLET PO SCH (19:39)
[2018-10-25] MEDS: SIMVASTATIN 20 MG TABLET PO SCH (19:39)
[2018-10-25] MEDS: MAGNESIUM HYDROXIDE 2,400 MG/30 ML UDC PO SCH (19:39)
[2018-10-25] MEDS: diphenhydrAMINE HCL 25 MG TABLET PO SCH (19:39)
[2018-10-25] MEDS: L. ACIDOPHILUS/LACTOBAC SPOR 1 EACH CAP PO SCH (19:39)
[2018-10-26] MEDS: PANTOPRAZOLE SODIUM 40 MG TABLET.DR PO SCH (06:14)
[2018-10-26] MEDS: LOSARTAN POTASSIUM 50 MG TABLET PO SCH (08:55)
[2018-10-26] MEDS: INSULIN LISPRO 100 UNIT/ML 3ML VIAL SQ SCH ×4 (08:55→20:06)
[2018-10-26] MEDS: metroNIDAZOLE 500 MG TABLET PO SCH ×3 (08:56→17:32)
[2018-10-26] MEDS: SITAGLIPTIN PHOSPHATE 50 MG TABLET PO SCH (08:56)
[2018-10-26] MEDS: LEVOFLOXACIN 250 MG TABLET PO SCH (08:56)
[2018-10-26] MEDS: ENOXAPARIN SODIUM 30 MG/0.3 ML DISP.SYRIN SQ SCH (08:57)
[2018-10-26] MEDS: amLODIPine BESYLATE 5 MG TABLET PO SCH (08:57)
[2018-10-26] MEDS: PARoxetine HCL 10 MG TABLET PO SCH (08:58)
[2018-10-26] MEDS: MAGNESIUM HYDROXIDE 2,400 MG/30 ML UDC PO SCH (20:03)
[2018-10-26] MEDS: L. ACIDOPHILUS/LACTOBAC SPOR 1 EACH CAP PO SCH (20:04)
[2018-10-26] MEDS: SIMVASTATIN 20 MG TABLET PO SCH (20:04)
[2018-10-26] MEDS: ACETAMINOPHEN 325 MG TABLET PO SCH (20:04)
[2018-10-26] MEDS: diphenhydrAMINE HCL 25 MG TABLET PO SCH (20:04)
[2018-10-27] MEDS: PANTOPRAZOLE SODIUM 40 MG TABLET.DR PO SCH (06:27)
[2018-10-27] MEDS: INSULIN LISPRO 100 UNIT/ML 3ML VIAL SQ SCH ×4 (08:02→21:07)
[2018-10-27] MEDS: LEVOFLOXACIN 250 MG TABLET PO SCH (09:14)
[2018-10-27] MEDS: LOSARTAN POTASSIUM 50 MG TABLET PO SCH (09:14)
[2018-10-27] MEDS: metroNIDAZOLE 500 MG TABLET PO SCH ×3 (09:14→18:10)
[2018-10-27] MEDS: SITAGLIPTIN PHOSPHATE 50 MG TABLET PO SCH (09:14)
[2018-10-27] MEDS: PARoxetine HCL 10 MG TABLET PO SCH (09:15)
[2018-10-27] MEDS: amLODIPine BESYLATE 5 MG TABLET PO SCH (09:15)
[2018-10-27] MEDS: ENOXAPARIN SODIUM 30 MG/0.3 ML DISP.SYRIN SQ SCH (09:15)
[2018-10-27] MEDS: diphenhydrAMINE HCL 25 MG TABLET PO SCH (20:51)
[2018-10-27] MEDS: MAGNESIUM HYDROXIDE 2,400 MG/30 ML UDC PO SCH (20:51)
[2018-10-27] MEDS: SIMVASTATIN 20 MG TABLET PO SCH (20:51)
[2018-10-27] MEDS: ACETAMINOPHEN 325 MG TABLET PO SCH (20:51)
[2018-10-27] MEDS: L. ACIDOPHILUS/LACTOBAC SPOR 1 EACH CAP PO SCH (20:51)
[2018-10-28] MEDS: PANTOPRAZOLE SODIUM 40 MG TABLET.DR PO SCH (06:03)
[2018-10-28] MEDS: INSULIN LISPRO 100 UNIT/ML 3ML VIAL SQ SCH ×4 (07:05→20:38)
[2018-10-28] MEDS: LOSARTAN POTASSIUM 50 MG TABLET PO SCH (08:22)
[2018-10-28] MEDS: metroNIDAZOLE 500 MG TABLET PO SCH ×3 (08:22→17:10)
[2018-10-28] MEDS: SITAGLIPTIN PHOSPHATE 50 MG TABLET PO SCH (08:23)
[2018-10-28] MEDS: PARoxetine HCL 10 MG TABLET PO SCH (08:23)
[2018-10-28] MEDS: amLODIPine BESYLATE 5 MG TABLET PO SCH (08:23)
[2018-10-28] MEDS: LEVOFLOXACIN 250 MG TABLET PO SCH (08:23)
[2018-10-28] MEDS: ENOXAPARIN SODIUM 30 MG/0.3 ML DISP.SYRIN SQ SCH (08:23)
[2018-10-28] MEDS: ACETAMINOPHEN 325 MG TABLET PO PRN (12:16)
[2018-10-28] MEDS: MAGNESIUM HYDROXIDE 2,400 MG/30 ML UDC PO SCH (20:36)
[2018-10-28] MEDS: ACETAMINOPHEN 325 MG TABLET PO SCH (20:36)
[2018-10-28] MEDS: SIMVASTATIN 20 MG TABLET PO SCH (20:36)
[2018-10-28] MEDS: L. ACIDOPHILUS/LACTOBAC SPOR 1 EACH CAP PO SCH (20:36)
[2018-10-28] MEDS: diphenhydrAMINE HCL 25 MG TABLET PO SCH (20:36)
[2018-10-29] MEDS: PANTOPRAZOLE SODIUM 40 MG TABLET.DR PO SCH (06:59)
[2018-10-29] MEDS: INSULIN LISPRO 100 UNIT/ML 3ML VIAL SQ SCH ×4 (07:34→19:33)
[2018-10-29] MEDS: metroNIDAZOLE 500 MG TABLET PO SCH ×3 (09:07→17:40)
[2018-10-29] MEDS: SITAGLIPTIN PHOSPHATE 50 MG TABLET PO SCH (09:07)
[2018-10-29] MEDS: LEVOFLOXACIN 250 MG TABLET PO SCH (09:07)
[2018-10-29] MEDS: PARoxetine HCL 10 MG TABLET PO SCH (09:07)
[2018-10-29] MEDS: LOSARTAN POTASSIUM 50 MG TABLET PO SCH (09:07)
[2018-10-29] MEDS: amLODIPine BESYLATE 5 MG TABLET PO SCH (09:08)
[2018-10-29] MEDS: ENOXAPARIN SODIUM 30 MG/0.3 ML DISP.SYRIN SQ SCH (09:08)
[2018-10-29] MEDS ORDERED: ONDANSETRON HCL 4 MG TAB.RAPDIS PO PRN (10:34)
--- NOTE | 2018-10-29 10:41 | Inpatient Progress Note ---
Subjective - Required Recertification Statement I anticipate X number of days because-include discharge plan: 5 - Review of Systems Events since last encounter: Alisha is having a little bit of nausea. She is doing well with therapy, but says that she "plays out" at the end of it. Her breathing is still doing well. Her colostomy is functioning well currently. General: Fatigue. Denies: Chills, Night Sweats HEENT: Denies: Head Aches Pulmonary: Denies: Dyspnea, Cough Cardiovascular: Denies: Chest Pain Gastrointestinal: Nausea. Denies: Vomiting (although she has a emesis bag at bedside) Genitourinary: Denies: Dysuria Musculoskeletal: Denies: Neck Pain, Shoulder Pain Neurological: Weakness Objective - Exam Vitals and I&O: Vital Signs Temp 97.2 F L 10/29/18 08:17 Pulse 90 10/29/18 08:17 Resp 18 10/29/18 08:17 BP 105/39 10/29/18 08:17 Pulse Ox 93 10/29/18 08:17 Intake & Output 10/28/18 10/28/18 10/29/18 11:59 23:59 11:59 Intake Total 480 240 240 Balance 480 240 240 Intake: Oral 480 240 240 Other: Voiding Method Toilet Toilet # Voids 2 1 # Bowel Movements 1 General: Alert, Oriented to Person, Oriented to Place, Oriented to Time, Mild distress (due to nausea) HEENT: Atraumatic, PERRLA, EOMI Neck: Supple, No JVD Lungs: Clear to auscultation, Decreased Air Movement Cardiovascular: Regular rate Abdomen: Normal bowel sounds, Other (Midline wound has a few steristrips in place. Good healing. Ostomy appliance is well applied and has soft stool in the bag.) Extremities: No clubbing Skin: Normal, [place], Pale Neurological: Normal speech Psych/Mental Status: Mental status NL, Mood NL - Results Results: Laboratory Results WBC 8.60 K/ul (4.00-12.00) 10/23/18 07:30 RBC 3.14 M/ul (3.90-5.20) L 10/23/18 07:30 Hgb 8.6 g/dL (12.0-16.0) L 10/23/18 07:30 Hct 26.4 % (34.5-46.5) L 10/23/18 07:30 MCV 84.0 fl (80.0-100.0) 10/23/18 07:30 MCH 27.3 pg (28.0-34.0) L 10/23/18 07:30 MCHC 32.4 g/dL (30.0-36.0) 10/23/18 07:30 RDW 16.2 % (11.3-14.3) H 10/23/18 07:30 Plt Count 263 K/mm3 (130-400) 10/23/18 07:30 Neut % (Auto) 75.7 % (39.0-79.0) 10/23/18 07:30 Lymph % (Auto) 14.9 % (16.0-50.0) L 10/23/18 07:30 [place] % (Auto) 5.7 % (0.0-11.0) 10/23/18 07:30 Eos % (Auto) 3.3 % (0.0-6.8) 10/23/18 07:30 Baso % (Auto) 0.4 (0.0-1.5) 10/23/18 07:30 Neut # (Auto) 6.5 # k/uL (1.4-7.7) 10/23/18 07:30 Lymph # (Auto) 1.3 # k/uL (0.6-4.0) 10/23/18 07:30 [place] # (Auto) 0.5 # k/uL (0.0-0.9) 10/23/18 07:30 Eos # (Auto) 0.3 # k/uL (0.0-0.6) 10/23/18 07:30 Baso # (Auto) 0.0 # k/uL (0.0-0.5) 10/23/18 07:30 Sodium 140 mmol/L (136-145) 10/23/18 07:30 Potassium 4.3 mmol/L (3.5-5.1) 10/23/18 07:30 Chloride 101 mmol/L (98-107) 10/23/18 07:30 Carbon Dioxide 31 mmol/L (22-30) H 10/23/18 07:30 BUN 10 mg/dL (7-17) 10/23/18 07:30 Creatinine 0.49 mg/dL (0.52-1.04) L 10/23/18 07:30 Estimated Creat Clear 174 10/23/18 07:30 Est GFR ( Amer) > 60 (60-) 10/23/18 07:30 Est GFR (Non-Af Amer) > 60 (60-) 10/23/18 07:30 Glucose 80 mg/dL (74-106) 10/23/18 07:30 Calcium 9.1 mg/dL (8.4-10.2) 10/23/18 07:30 Total Bilirubin 0.5 mg/dL (0.2-1.3) 10/23/18 07:30 AST 20 U/L (15-46) 10/23/18 07:30 ALT 11 U/L (13-69) L 10/23/18 07:30 Alkaline Phosphatase 52 U/L (38-126) 10/23/18 07:30 Total Protein 5.2 g/dL (6.3-8.2) L 10/23/18 07:30 Albumin 2.7 g/dL (3.5-5.0) L 10/23/18 07:30 Assessment/Plan - Assessment/Plan (1) S/P colostomy Status: Resolved Current Visit: Yes Assessment: Functioning well (2) Perforated bowel Status: Acute Current Visit: No Assessment: S/P colostomy and hemicolectomy (3) Chronic obstructive pulmonary disease Status: Acute Current Visit: Yes Qualifiers: COPD type: emphysema Emphysema type: panlobular Qualified Code(s): J43.1 - Panlobular emphysema Assessment: No not smoking Plan: Continue nebulizers, supplemental O2 (4) Diabetes mellitus Status: Chronic Current Visit: No Qualifiers: Diabetes mellitus type: type 2 Diabetes mellitus skilled nursing insulin use: without skilled nursing use Diabetes mellitus complication status: without complication Qualified Code(s): E11.9 - Type 2 diabetes mellitus without complications Assessment: Continue SSI (5) Hypertension Status: Chronic Current Visit: No Qualifiers: Hypertension type: essential hypertension Qualified Code(s): I10 - Essential (primary) hypertension Assessment: Well controlled (6) Postoperative anemia Status: Acute Current Visit: Yes Assessment: Improved from d/c from [facility] will check CBC in am
[2018-10-29] MEDS: ACETAMINOPHEN 325 MG TABLET PO PRN (17:10)
[2018-10-29] MEDS: MAGNESIUM HYDROXIDE 2,400 MG/30 ML UDC PO SCH (19:36)
[2018-10-29] MEDS: ACETAMINOPHEN 325 MG TABLET PO SCH (19:36)
[2018-10-29] MEDS: SIMVASTATIN 20 MG TABLET PO SCH (19:36)
[2018-10-29] MEDS: diphenhydrAMINE HCL 25 MG TABLET PO SCH (19:36)
[2018-10-29] MEDS: L. ACIDOPHILUS/LACTOBAC SPOR 1 EACH CAP PO SCH (19:36)
[2018-10-30] MEDS: PANTOPRAZOLE SODIUM 40 MG TABLET.DR PO SCH (05:59)
[2018-10-30 07:08] LABS: MEAN CORPUSCULAR HEMOGLOBIN 27.7 pg (28.0-34.0)
[2018-10-30] MEDS: INSULIN LISPRO 100 UNIT/ML 3ML VIAL SQ SCH ×4 (07:54→19:55)
[2018-10-30] MEDS: LOSARTAN POTASSIUM 50 MG TABLET PO SCH (09:04)
[2018-10-30] MEDS: LEVOFLOXACIN 250 MG TABLET PO SCH (09:04)
[2018-10-30] MEDS: ENOXAPARIN SODIUM 30 MG/0.3 ML DISP.SYRIN SQ SCH (09:04)
[2018-10-30] MEDS: metroNIDAZOLE 500 MG TABLET PO SCH ×3 (09:04→18:29)
[2018-10-30] MEDS: SITAGLIPTIN PHOSPHATE 50 MG TABLET PO SCH (09:04)
[2018-10-30] MEDS: PARoxetine HCL 10 MG TABLET PO SCH (09:05)
[2018-10-30] MEDS: amLODIPine BESYLATE 5 MG TABLET PO SCH (09:06)
[2018-10-30] MEDS: ACETAMINOPHEN 325 MG TABLET PO PRN (12:20)
[2018-10-30 18:36] LABS: eGFR (Non-African) > 60
[2018-10-30] MEDS: MAGNESIUM HYDROXIDE 2,400 MG/30 ML UDC PO SCH (19:58)
[2018-10-30] MEDS: diphenhydrAMINE HCL 25 MG TABLET PO SCH (20:00)
[2018-10-30] MEDS: SIMVASTATIN 20 MG TABLET PO SCH (20:01)
[2018-10-30] MEDS: L. ACIDOPHILUS/LACTOBAC SPOR 1 EACH CAP PO SCH (20:01)
[2018-10-30] MEDS: ACETAMINOPHEN 325 MG TABLET PO SCH (20:01)
--- NOTE | 2018-10-31 04:30 | Diagnostic Imaging Report ---
HEIKE RENE [facility] [address] [facility] [address]. 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 The right hilum is prominent. Aortic arch calcification is present. The lung rodriguez are hyperinflated. Increased reticular markings are present the lung bases. Thoracic spondylosis is present. There is no pleural effusion Impression: 2 cm right upper lobe nodular density. CT the chest is recommended Chronic interstitial infiltrate. Aortic calcification Electronically signed on Oct 30, 2018 9:59:18 PM AUTO VINYL TOP INSTALLER by: Randy JOHNSON
[2018-10-31] MEDS: PANTOPRAZOLE SODIUM 40 MG TABLET.DR PO SCH (06:14)
[2018-10-31] MEDS: INSULIN LISPRO 100 UNIT/ML 3ML VIAL SQ SCH ×4 (07:47→20:07)
[2018-10-31] MEDS: LEVOFLOXACIN 250 MG TABLET PO SCH (08:46)
[2018-10-31] MEDS: LOSARTAN POTASSIUM 50 MG TABLET PO SCH (08:46)
[2018-10-31] MEDS: amLODIPine BESYLATE 5 MG TABLET PO SCH (08:46)
[2018-10-31] MEDS: SITAGLIPTIN PHOSPHATE 50 MG TABLET PO SCH (08:46)
[2018-10-31] MEDS: PARoxetine HCL 10 MG TABLET PO SCH (08:46)
[2018-10-31] MEDS: ENOXAPARIN SODIUM 30 MG/0.3 ML DISP.SYRIN SQ SCH (08:46)
[2018-10-31] MEDS: metroNIDAZOLE 500 MG TABLET PO SCH ×3 (08:46→17:02)
[2018-10-31] MEDS: L. ACIDOPHILUS/LACTOBAC SPOR 1 EACH CAP PO SCH (20:06)
[2018-10-31] MEDS: MAGNESIUM HYDROXIDE 2,400 MG/30 ML UDC PO SCH (20:06)
[2018-10-31] MEDS: diphenhydrAMINE HCL 25 MG TABLET PO SCH (20:06)
[2018-10-31] MEDS: SIMVASTATIN 20 MG TABLET PO SCH (20:06)
[2018-10-31] MEDS: ACETAMINOPHEN 325 MG TABLET PO SCH (20:06)
[2018-11-01] MEDS: PANTOPRAZOLE SODIUM 40 MG TABLET.DR PO SCH (06:23)
[2018-11-01] MEDS: INSULIN LISPRO 100 UNIT/ML 3ML VIAL SQ SCH ×4 (07:36→20:47)
[2018-11-01] MEDS: metroNIDAZOLE 500 MG TABLET PO SCH ×3 (08:43→17:22)
[2018-11-01] MEDS: SITAGLIPTIN PHOSPHATE 50 MG TABLET PO SCH (08:43)
[2018-11-01] MEDS: LOSARTAN POTASSIUM 50 MG TABLET PO SCH (08:43)
[2018-11-01] MEDS: PARoxetine HCL 10 MG TABLET PO SCH (08:44)
[2018-11-01] MEDS: LEVOFLOXACIN 250 MG TABLET PO SCH (08:44)
[2018-11-01] MEDS: ENOXAPARIN SODIUM 30 MG/0.3 ML DISP.SYRIN SQ SCH (08:44)
[2018-11-01] MEDS: amLODIPine BESYLATE 5 MG TABLET PO SCH (08:44)
[2018-11-01] MEDS: ACETAMINOPHEN 325 MG TABLET PO PRN (13:04)
[2018-11-01] MEDS: ACETAMINOPHEN 325 MG TABLET PO SCH (20:43)
[2018-11-01] MEDS: diphenhydrAMINE HCL 25 MG TABLET PO SCH (20:43)
[2018-11-01] MEDS: SIMVASTATIN 20 MG TABLET PO SCH (20:43)
[2018-11-01] MEDS: L. ACIDOPHILUS/LACTOBAC SPOR 1 EACH CAP PO SCH (20:44)
[2018-11-01] MEDS: MAGNESIUM HYDROXIDE 2,400 MG/30 ML UDC PO SCH (20:44)
[2018-11-02] MEDS: PANTOPRAZOLE SODIUM 40 MG TABLET.DR PO SCH (06:02)
[2018-11-02] MEDS: SITAGLIPTIN PHOSPHATE 50 MG TABLET PO SCH (09:03)
[2018-11-02] MEDS: LEVOFLOXACIN 250 MG TABLET PO SCH (09:03)
[2018-11-02] MEDS: ENOXAPARIN SODIUM 30 MG/0.3 ML DISP.SYRIN SQ SCH (09:03)
[2018-11-02] MEDS: LOSARTAN POTASSIUM 50 MG TABLET PO SCH (09:04)
[2018-11-02] MEDS: INSULIN LISPRO 100 UNIT/ML 3ML VIAL SQ SCH ×4 (09:04→19:55)
[2018-11-02] MEDS: metroNIDAZOLE 500 MG TABLET PO SCH ×3 (09:04→18:18)
[2018-11-02] MEDS: PARoxetine HCL 10 MG TABLET PO SCH (09:04)
[2018-11-02] MEDS: amLODIPine BESYLATE 5 MG TABLET PO SCH (09:04)
[2018-11-02] MEDS: diphenhydrAMINE HCL 25 MG TABLET PO SCH (19:52)
[2018-11-02] MEDS: MAGNESIUM HYDROXIDE 2,400 MG/30 ML UDC PO SCH (19:52)
[2018-11-02] MEDS: L. ACIDOPHILUS/LACTOBAC SPOR 1 EACH CAP PO SCH (19:52)
[2018-11-02] MEDS: ACETAMINOPHEN 325 MG TABLET PO PRN (20:03)
[2018-11-02] MEDS: SIMVASTATIN 20 MG TABLET PO SCH (20:03)
[2018-11-02] MEDS: ACETAMINOPHEN 325 MG TABLET PO SCH (20:03)
[2018-11-03] MEDS: PANTOPRAZOLE SODIUM 40 MG TABLET.DR PO SCH (06:05)
[2018-11-03] MEDS: INSULIN LISPRO 100 UNIT/ML 3ML VIAL SQ SCH ×4 (07:17→19:54)
[2018-11-03] MEDS: metroNIDAZOLE 500 MG TABLET PO SCH ×3 (08:38→17:43)
[2018-11-03] MEDS: LOSARTAN POTASSIUM 50 MG TABLET PO SCH (08:38)
[2018-11-03] MEDS: SITAGLIPTIN PHOSPHATE 50 MG TABLET PO SCH (08:39)
[2018-11-03] MEDS: LEVOFLOXACIN 250 MG TABLET PO SCH (08:39)
[2018-11-03] MEDS: PARoxetine HCL 10 MG TABLET PO SCH (08:40)
[2018-11-03] MEDS: ENOXAPARIN SODIUM 30 MG/0.3 ML DISP.SYRIN SQ SCH (08:41)
[2018-11-03] MEDS: amLODIPine BESYLATE 5 MG TABLET PO SCH (08:44)
[2018-11-03] MEDS: L. ACIDOPHILUS/LACTOBAC SPOR 1 EACH CAP PO SCH (19:48)
[2018-11-03] MEDS: diphenhydrAMINE HCL 25 MG TABLET PO SCH (19:48)
[2018-11-03] MEDS: MAGNESIUM HYDROXIDE 2,400 MG/30 ML UDC PO SCH (19:48)
[2018-11-03] MEDS: SIMVASTATIN 20 MG TABLET PO SCH (19:49)
[2018-11-03] MEDS: ACETAMINOPHEN 325 MG TABLET PO SCH (19:49)
[2018-11-04] MEDS: PANTOPRAZOLE SODIUM 40 MG TABLET.DR PO SCH (06:04)
[2018-11-04] MEDS: INSULIN LISPRO 100 UNIT/ML 3ML VIAL SQ SCH ×4 (07:57→21:20)
[2018-11-04] MEDS: LOSARTAN POTASSIUM 50 MG TABLET PO SCH (08:40)
[2018-11-04] MEDS: amLODIPine BESYLATE 5 MG TABLET PO SCH (08:40)
[2018-11-04] MEDS: LEVOFLOXACIN 250 MG TABLET PO SCH (08:40)
[2018-11-04] MEDS: metroNIDAZOLE 500 MG TABLET PO SCH (08:40)
[2018-11-04] MEDS: PARoxetine HCL 10 MG TABLET PO SCH (08:41)
[2018-11-04] MEDS: ENOXAPARIN SODIUM 30 MG/0.3 ML DISP.SYRIN SQ SCH (08:41)
[2018-11-04] MEDS: SITAGLIPTIN PHOSPHATE 50 MG TABLET PO SCH (08:41)
[2018-11-04] MEDS: FLUCONAZOLE 150 MG TABLET PO SCH (13:02)
[2018-11-04 13:14] LABS: MEAN CORPUSCULAR HEMOGLOBIN 27.7 pg (28.0-34.0)
[2018-11-04 13:37] LABS: eGFR (Non-African) > 60
[2018-11-04] MEDS: ACETAMINOPHEN 325 MG TABLET PO SCH (21:16)
[2018-11-04] MEDS: L. ACIDOPHILUS/LACTOBAC SPOR 1 EACH CAP PO SCH (21:16)
[2018-11-04] MEDS: diphenhydrAMINE HCL 25 MG TABLET PO SCH (21:16)
[2018-11-04] MEDS: SIMVASTATIN 20 MG TABLET PO SCH (21:16)
[2018-11-04] MEDS: MAGNESIUM HYDROXIDE 2,400 MG/30 ML UDC PO SCH (21:17)
[2018-11-05] MEDS: PANTOPRAZOLE SODIUM 40 MG TABLET.DR PO SCH (06:32)
[2018-11-05] MEDS: INSULIN LISPRO 100 UNIT/ML 3ML VIAL SQ SCH ×4 (07:42→19:45)
[2018-11-05] MEDS: LOSARTAN POTASSIUM 50 MG TABLET PO SCH (09:06)
[2018-11-05] MEDS: ENOXAPARIN SODIUM 30 MG/0.3 ML DISP.SYRIN SQ SCH (09:07)
[2018-11-05] MEDS: SITAGLIPTIN PHOSPHATE 50 MG TABLET PO SCH (09:07)
[2018-11-05] MEDS: PARoxetine HCL 10 MG TABLET PO SCH (09:07)
[2018-11-05] MEDS: amLODIPine BESYLATE 5 MG TABLET PO SCH (09:07)
--- NOTE | 2018-11-05 10:48 | Inpatient Progress Note ---
Subjective - Required Recertification Statement I anticipate X number of days because-include discharge plan: 3 - Review of Systems Events since last encounter: Alisha's blood work looks better. Her Hgb has come up to 9.7. Renal labs look good. I stopped her levofloxacin and metronidazole as she has completed her course. I am optimistic that this will improve her appetite. Therapy says that she continues to be depressed and tires easily in therapy.. I discussed with Alisha and Kwasi that her CXR showed a right upper lobe mass, and that we will need to do a CT in the future. General: Denies: Chills, Night Sweats HEENT: Denies: Head Aches Pulmonary: Dyspnea. Denies: Cough Cardiovascular: Denies: Chest Pain Gastrointestinal: Nausea. Denies: Vomiting Genitourinary: Denies: Dysuria Musculoskeletal: Neck Pain. Denies: Shoulder Pain Neurological: Weakness. Denies: Change in Speech, Confusion Objective - Exam Vitals and I&O: Vital Signs Temp 98.4 F 11/05/18 08:55 Pulse 88 11/05/18 08:55 Resp 18 11/05/18 08:55 BP 140/61 11/05/18 08:55 Pulse Ox 95 11/05/18 08:55 Intake & Output 11/04/18 11/04/18 11/05/18 11:59 23:59 11:59 Intake Total 300 120 240 Balance 300 120 240 Weight 78.925 kg Intake: Oral 300 120 240 Other: Voiding Method Toilet Toilet # Voids 1 3 1 # Bowel Movements 0 General: Alert, Oriented to Person, Oriented to Place, Oriented to Time HEENT: Atraumatic, Decreased Hearing Acuity Neck: Supple, No JVD Lungs: Prolonged Expiration, Decreased Air Movement Cardiovascular: Regular rate Abdomen: Normal bowel sounds, Soft, No tenderness, Other (Stoma is functioning well. There is poor adherence at the medial aspect of the appliance) Extremities: No clubbing, No cyanosis, No edema Skin: Normal, [place] Neurological: Normal speech Psych/Mental Status: Mental status NL - Results Results: Laboratory Results WBC 7.30 K/ul (4.00-12.00) 11/04/18 13:05 RBC 3.46 M/ul (3.90-5.20) L 11/04/18 13:05 Hgb 9.6 g/dL (12.0-16.0) L 11/04/18 13:05 Hct 29.8 % (34.5-46.5) L 11/04/18 13:05 MCV 86.0 fl (80.0-100.0) 11/04/18 13:05 MCH 27.7 pg (28.0-34.0) L 11/04/18 13:05 MCHC 32.1 g/dL (30.0-36.0) 11/04/18 13:05 RDW 19.2 % (11.3-14.3) H 11/04/18 13:05 Plt Count 184 K/mm3 (130-400) 11/04/18 13:05 Neut % (Auto) 75.7 % (39.0-79.0) 10/23/18 07:30 Lymph % (Auto) 14.9 % (16.0-50.0) L 10/23/18 07:30 [place] % (Auto) 5.7 % (0.0-11.0) 10/23/18 07:30 Eos % (Auto) 3.3 % (0.0-6.8) 10/23/18 07:30 Baso % (Auto) 0.4 (0.0-1.5) 10/23/18 07:30 Neut # (Auto) 6.5 # k/uL (1.4-7.7) 10/23/18 07:30 Lymph # (Auto) 1.3 # k/uL (0.6-4.0) 10/23/18 07:30 [place] # (Auto) 0.5 # k/uL (0.0-0.9) 10/23/18 07:30 Eos # (Auto) 0.3 # k/uL (0.0-0.6) 10/23/18 07:30 Baso # (Auto) 0.0 # k/uL (0.0-0.5) 10/23/18 07:30 Sodium 137 mmol/L (136-145) 11/04/18 13:05 Potassium 4.4 mmol/L (3.5-5.1) 11/04/18 13:05 Chloride 97 mmol/L (98-107) L 11/04/18 13:05 Carbon Dioxide 34 mmol/L (22-30) H 11/04/18 13:05 BUN 8 mg/dL (7-17) 11/04/18 13:05 Creatinine 0.56 mg/dL (0.52-1.04) 11/04/18 13:05 Estimated Creat Clear 133 11/04/18 13:05 Est GFR ( Amer) > 60 (60-) 11/04/18 13:05 Est GFR (Non-Af Amer) > 60 (60-) 11/04/18 13:05 Glucose 190 mg/dL (74-106) H 11/04/18 13:05 Calcium 9.9 mg/dL (8.4-10.2) 11/04/18 13:05 Total Bilirubin 0.3 mg/dL (0.2-1.3) 11/04/18 13:05 AST 18 U/L (15-46) 11/04/18 13:05 ALT 16 U/L (13-69) 11/04/18 13:05 Alkaline Phosphatase 44 U/L (38-126) 11/04/18 13:05 Total Protein 5.8 g/dL (6.3-8.2) L 11/04/18 13:05 Albumin 3.1 g/dL (3.5-5.0) L 11/04/18 13:05 Assessment/Plan - Assessment/Plan (1) S/P colostomy Status: Resolved Current Visit: Yes Assessment: Still working on the appliance. 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
[2018-11-05] MEDS: diphenhydrAMINE HCL 25 MG TABLET PO SCH (19:40)
[2018-11-05] MEDS: ACETAMINOPHEN 325 MG TABLET PO SCH (19:41)
[2018-11-05] MEDS: L. ACIDOPHILUS/LACTOBAC SPOR 1 EACH CAP PO SCH (19:41)
[2018-11-05] MEDS: SIMVASTATIN 20 MG TABLET PO SCH (19:42)
[2018-11-05] MEDS: MAGNESIUM HYDROXIDE 2,400 MG/30 ML UDC PO SCH (19:43)
[2018-11-06] MEDS: PANTOPRAZOLE SODIUM 40 MG TABLET.DR PO SCH (06:06)
[2018-11-06] MEDS: INSULIN LISPRO 100 UNIT/ML 3ML VIAL SQ SCH ×4 (07:55→19:58)
[2018-11-06] MEDS: PARoxetine HCL 10 MG TABLET PO SCH (09:31)
[2018-11-06] MEDS: amLODIPine BESYLATE 5 MG TABLET PO SCH (09:31)
[2018-11-06] MEDS: SITAGLIPTIN PHOSPHATE 50 MG TABLET PO SCH (09:31)
[2018-11-06] MEDS: LOSARTAN POTASSIUM 50 MG TABLET PO SCH (09:31)
[2018-11-06] MEDS: FLUCONAZOLE 150 MG TABLET PO SCH (11:45)
[2018-11-06] MEDS: diphenhydrAMINE HCL 25 MG TABLET PO SCH (20:02)
[2018-11-06] MEDS: ACETAMINOPHEN 325 MG TABLET PO SCH (20:03)
[2018-11-06] MEDS: SIMVASTATIN 20 MG TABLET PO SCH (20:04)
[2018-11-06] MEDS: L. ACIDOPHILUS/LACTOBAC SPOR 1 EACH CAP PO SCH (20:04)
[2018-11-06] MEDS: MAGNESIUM HYDROXIDE 2,400 MG/30 ML UDC PO SCH (20:05)
[2018-11-07] MEDS: PANTOPRAZOLE SODIUM 40 MG TABLET.DR PO SCH (05:59)
[2018-11-07] MEDS: INSULIN LISPRO 100 UNIT/ML 3ML VIAL SQ SCH (08:33)
[2018-11-07] MEDS: PARoxetine HCL 10 MG TABLET PO SCH (08:34)
[2018-11-07] MEDS: SITAGLIPTIN PHOSPHATE 50 MG TABLET PO SCH (08:34)
[2018-11-07] MEDS: amLODIPine BESYLATE 5 MG TABLET PO SCH (08:34)
[2018-11-07] MEDS: LOSARTAN POTASSIUM 50 MG TABLET PO SCH (08:34)
[2018-11-07 08:37] VITALS: BP 137/61
== END 2018-11-07 10:25 | disposition home or self-care (01) | DRG 811 ==
LOC: SOUTH 14:06
PROVIDERS: ADMIT Family Medicine; ATTEND Family Medicine
DX: D64.89 Other specified anemias (principal); K63.1 Perforation of intestine (nontraumatic); K65.1 Peritoneal abscess; E11.9 Type 2 diabetes mellitus without complications; I10 Essential (primary) hypertension; R91.8 Other nonspecific abnormal finding of lung field; R06.02 Shortness of breath; E78.5 Hyperlipidemia, unspecified; E66.01 Morbid (severe) obesity due to excess calories; J44.9 Chronic obstructive pulmonary disease, unspecified; Z93.3 Colostomy status
CPT/HCPCS: 36415; 71046; 80053; 85025; 85027; 97110; 97112; 97116; 97161; 97165; 97530; 97535; A9270; J1650; J1815; Q0163; 99222; 99231; 99232; 99238